=== PATIENT | male | born 1960 | race Caucasian/White ===

== ENCOUNTER 2017-12-13 14:13 | Emergency (ER) | payer OTHER, MEDICAID ==
[~2017-12-13] VITALS: Ht 160 cm; Wt 61.4 kg
[2017-12-13 14:18] VITALS: BP 148/65; Ht 160 cm; Wt 61.4 kg
[2017-12-13] MEDS ORDERED: EFFIENT5 MG PO (14:19)
[2017-12-13] MEDS ORDERED: TRAZODONE HCL150 MG PO (14:19)
[2017-12-13] MEDS ORDERED: ZIAC 5-6.25 MG1 TAB PO (14:19)
[2017-12-13] MEDS ORDERED: ADVAIR HFA [SP]12 GM INH (14:20)
[2017-12-13] MEDS ORDERED: FLOMAX0.4 MG PO (14:20)
[2017-12-13] MEDS ORDERED: BAYER CHEWABLE81 MG PO (14:20)
== END 2017-12-13 15:59 | disposition left against medical advice (07) ==
LOC: D.ER 14:13
DX: R04.0 Epistaxis (principal)